=== PATIENT | male | born 1990 | race African-American/Black ===

== ENCOUNTER 2021-10-27 21:55 | Emergency (ER) | payer BC ==
[2021-10-27] MEDS ORDERED: ALBUTEROL 2.5 MG/3 ML NEB SOL ONE (23:38)
[2021-10-27] MEDS ORDERED: predniSONE 20 MG TAB ONE (23:38)
--- NOTE | 2021-10-28 01:44 | EDPHYS ---
Physician Documentation [facility] Name: Sarthak Burns Age: 31 yrs Sex: Male : 1990 Arrival Date: 10/27/2021 Time: 21:59 Bed 15 Private MD: ED Physician Levon Zuniga HPI: 10/27 23:30 This 31 yrs old Black Male presents to ER via Ambulatory with complaints of Asthma cp Exacerbation. 23:30 The patient presents to the emergency department with wheezing, Current therapy: Duo cp Nebs, the patient was reported to have audible wheezing. Onset: The symptoms/episode began/occurred 2 day(s) ago. Associated signs and symptoms: Pertinent negatives: chest pain, fever, headache, palpitations, vomiting. Severity of symptoms: in the emergency department the symptoms are unchanged despite home interventions. Historical: - Allergies: 22:03 No Known Allergies; hb - Home Meds: 22:04 DuoNeb 0.5 mg-3 mg(2.5 mg base)/3 mL Inhl nebu [Active]; Albuterol Inhl [Active]; hb - PMHx: 22:03 Asthma; hb - PSHx: 22:04 None; hb - Immunization history:: Client reports having NOT received the Covid vaccine. - Social history:: Smoking status: Patient denies any tobacco usage or history of. ROS: 23:35 Constitutional: Negative for body aches, chills, fever, poor PO intake. cp 23:35 Eyes: Negative for injury, pain, redness, and discharge. cp 23:35 ENT: Negative for drainage from ear(s), ear pain, sore throat, difficulty swallowing, difficulty handling secretions. 23:35 Cardiovascular: Negative for chest pain, edema, palpitations. 23:35 Respiratory: Positive for shortness of breath, wheezing, Negative for cough. 23:35 Abdomen/GI: Negative for abdominal pain, nausea, vomiting, and diarrhea. 23:35 Neuro: Negative for altered mental status, headache, weakness. 23:35 All other systems are negative. Exam: 23:40 Constitutional: The patient appears in no acute distress, alert, awake, comfortable, cp non-diaphoretic, non-toxic, well developed, well nourished. 23:40 Head/Face: Normocephalic, atraumatic. cp 23:40 Eyes: Periorbital structures: appear normal, Conjunctiva: normal, no exudate, no injection, Sclera: no appreciated abnormality, Lids and lashes: appear normal, bilaterally. 23:40 ENT: External ear(s): are unremarkable, Nose: is normal, Mouth: Lips: moist, Oral mucosa: pink and intact, moist, Posterior pharynx: Airway: no evidence of obstruction, patent, Tonsils: are normal in appearance, swelling, is not appreciated, erythema, is not appreciated. 23:40 Neck: ROM/movement: is normal, is supple, without pain, no range of motions limitations. 23:40 Chest/axilla: Inspection: normal, Palpation: is normal, no crepitus, no tenderness. 23:40 Cardiovascular: Rate: normal, Rhythm: regular, Edema: is not appreciated, JVD: is not appreciated. 23:40 Respiratory: the patient does not display signs of respiratory distress, Respirations: normal, no use of accessory muscles, no retractions, labored breathing, is not present, Breath sounds: decreased breath sounds, are not appreciated, stridor, is not appreciated, wheezing: that is mild, is heard in the left posterior upper lobe and left posterior lower lobe. 23:40 Abdomen/GI: Inspection: abdomen appears normal, Palpation: abdomen is soft and non-tender, in all quadrants. 23:40 Back: pain, is absent, ROM is normal. 23:40 Neuro: Orientation: to person, place \T\ time. Mentation: is normal, Cerebellar function: is grossly normal, Motor: moves all fours, strength is normal, Sensation: is normal. Vital Signs: 22:01 BP 115 / 75; Pulse 88; Resp 18; Temp 97.8; Pulse Ox 99% on R/A; Weight 58.97 kg; Height hb 5 ft. 7 in. (170.18 cm); Pain 0/10; 22:49 BP 127 / 82; Pulse 76; Resp 18; Pulse Ox 100% on R/A; eh3 23:37 BP 118 / 76; Pulse 88; Resp 18; Pulse Ox 100% on R/A; ld1 10/28 02:20 BP 121 / 80; Pulse 84; Resp 17 S; Pulse Ox 100% on R/A; lg3 10/27 22:01 Body Mass Index 20.36 (58.97 kg, 170.18 cm) hb MDM: 10/27 22:59 Patient medically screened. cp 10/28 00:00 Differential diagnosis: acute asthma, reactive airway, anaphylaxis, pneumonia. cp 01:42 Antibiotic administration: Not indicated, the patient does not have an appreciated cp infiltrate. 01:42 Data reviewed: vital signs, nurses notes, radiologic studies, plain films. Test cp interpretation: by ED physician or midlevel provider: plain radiologic studies. Counseling: I had a detailed discussion with the patient and/or guardian regarding: the historical points, exam findings, and any diagnostic results supporting the discharge/admit diagnosis, radiology results, the need for outpatient follow up, a family practitioner, to return to the emergency department if symptoms worsen or persist or if there are any questions or concerns that arise at home. Response to treatment: the patient's symptoms have markedly improved after treatment, and as a result, I will discharge patient. 10/27 23:25 Order name: XRAY Chest (1 view) cp Administered Medications: 10/27 23:25 CANCELLED (Physician Discretion): SOLU-Medrol (methylPREDNISolone sodium succinate) 125 cp mg IM once 23:37 Drug: Albuterol - atroVENT (ipratropium) (3:1) (2.5 mg - 0.5 mg) 3 ml Route: Nebulizer; ld1 10/28 00:01 Follow up: Response: No adverse reaction eh3 10/27 23:37 Drug: predniSONE 60 mg Route: PO; ld1 10/28 00:01 Follow up: Response: No adverse reaction 3 01:50 Drug: Albuterol 2.5 mg Route: Inhalation; lg3 Disposition: 22:06 Co-signature as Attending Physician, Levon Zuniga MD. rn Disposition Summary: 10/28/21 01:42 Discharge Ordered Location: Home cp Problem: an acute exacerbation cp Symptoms: have improved cp Condition: Stable cp Diagnosis - Unspecified asthma with (acute) exacerbation cp Followup: cp - With: Private Physician - When: 2 - 3 days - Reason: Recheck today's complaints Discharge Instructions: - Discharge Summary Sheet cp - Asthma, Adult cp Forms: - Medication Reconciliation Form cp - Thank You Letter cp - Antibiotic Education cp - Prescription Opioid Use cp Prescriptions: - ipratropium-albuterol 0.5 mg-3 mg(2.5 mg base)/3 mL Inhalation solution for nebulization - inhale 3 milliliter by NEBULIZATION route 4 times per day; 1 box; Refills: 0, cp Product Selection Permitted - prednisone 50 mg Oral tablet - take 1 tablet by ORAL route once daily for 5 days; 5 tablet; Refills: 0, cp Product Selection Permitted Signatures: Dispatcher [employer] EDLevon Gonzalez MD MD rn Page, Corey, PA PA cp Geena Delgado RN RN Marian Rinaldi RN RN lg3 Gaby Lei RN RN ld1 Cynthia Silva 3 Corrections: (The following items were deleted from the chart) 10/27 23:25 23:24 SOLU-Medrol (methylPREDNISolone sodium succinate) 125 mg IM once ordered. cp cp
--- NOTE | 2021-10-28 01:44 | ER ---
Nurse's Notes [facility] Name: Sarthak Burns Age: 31 yrs Sex: Male : 1990 Arrival Date: 10/27/2021 Time: 21:59 Bed 15 Private MD: Diagnosis: Unspecified asthma with (acute) exacerbation Presentation: 10/27 22:01 Chief complaint: SOB x 2 days, unrelieved by inhaler and neb x 5 today. Coronavirus hb screen: Client presents with at least one sign or symptom that may indicate coronavirus-19. Standard/surgical mask placed on the client. Ebola Screen: No symptoms or risks identified at this time. Initial Sepsis Screen: Does the patient meet any 2 criteria? No. Patient's initial sepsis screen is negative. Does the patient have a suspected source of infection? No. Patient's initial sepsis screen is negative. Risk Assessment: Do you want to hurt yourself or someone else? Patient reports no desire to harm self or others. Onset of symptoms was October 26, 2021. 22:01 Method Of Arrival: Ambulatory 22:01 Acuity: BLANCHE 3 hb Triage Assessment: 22:49 General: Appears in no apparent distress. comfortable, Behavior is calm, cooperative, eh3 appropriate for age. Pain: Denies pain. Neuro: Level of Consciousness is awake, alert, obeys commands, Oriented to person, place, time, situation. Cardiovascular: Capillary refill < 3 seconds Patient's skin is warm and dry. Respiratory: Airway is patent Respiratory effort is even, labored, Breath sounds with wheezes bilaterally. Historical: - Allergies: 22:03 No Known Allergies; hb - Home Meds: 22:04 DuoNeb 0.5 mg-3 mg(2.5 mg base)/3 mL Inhl nebu [Active]; Albuterol Inhl [Active]; hb - PMHx: 22:03 Asthma; hb - PSHx: 22:04 None; hb - Immunization history:: Client reports having NOT received the Covid vaccine. - Social history:: Smoking status: Patient denies any tobacco usage or history of. Screenin:56 Abuse screen: Denies threats or abuse. Denies injuries from another. Nutritional eh3 screening: No deficits noted. Tuberculosis screening: No symptoms or risk factors identified. Fall Risk None identified. Assessment: 22:56 Reassessment: No changes from previously documented assessment. see triage assessment. 3 10/28 02:20 Reassessment: Patient appears in no apparent distress at this time. No changes from lg3 previously documented assessment. Patient and/or family updated on plan of care and expected duration. Pain level reassessed. Patient is alert, oriented x 3, equal unlabored respirations, skin warm/dry/pink. Patient states feeling better. Patient states symptoms have improved. Vital Signs: 10/27 22:01 BP 115 / 75; Pulse 88; Resp 18; Temp 97.8; Pulse Ox 99% on R/A; Weight 58.97 kg; Height hb 5 ft. 7 in. (170.18 cm); Pain 0/10; 22:49 BP 127 / 82; Pulse 76; Resp 18; Pulse Ox 100% on R/A; eh3 23:37 BP 118 / 76; Pulse 88; Resp 18; Pulse Ox 100% on R/A; ld1 10/28 02:20 BP 121 / 80; Pulse 84; Resp 17 S; Pulse Ox 100% on R/A; lg3 10/27 22:01 Body Mass Index 20.36 (58.97 kg, 170.18 cm) hb ED Course: 10/27 21:59 Patient arrived in ED. bp1 22:03 Triage completed. hb 22:04 Blaze De La Rosa PA is PHCP. cp 22:04 Levon Zuniga MD is Attending Physician. cp 22:04 Arm band placed on. hb 22:56 Patient has correct armband on for positive identification. Bed in low position. Call [facility] light in reach. Side rails up X2. 22:57 Cynthia Silva is Primary Nurse. 3 10/28 00:24 XRAY Chest (1 view) In Process Unspecified. EDMS 02:21 No provider procedures requiring assistance completed. Patient did not have IV access lg3 during this emergency room visit. Administered Medications: 10/27 23:25 CANCELLED (Physician Discretion): SOLU-Medrol (methylPREDNISolone sodium succinate) 125 cp mg IM once 23:37 Drug: Albuterol - atroVENT (ipratropium) (3:1) (2.5 mg - 0.5 mg) 3 ml Route: Nebulizer; [facility] 10/28 00:01 Follow up: Response: No adverse reaction 3 10/27 23:37 Drug: predniSONE 60 mg Route: PO; ld1 10/28 00:01 Follow up: Response: No adverse reaction 3 01:50 Drug: Albuterol 2.5 mg Route: Inhalation; lg3 Medication: 10/27 22:56 VIS not applicable for this client. 3 Outcome: 10/28 01:42 Discharge ordered by . cp 02:21 Discharged to home ambulatory, with family. lg3 02:21 Condition: stable 02:21 Discharge instructions given to patient, Instructed on discharge instructions, follow up and referral plans. medication usage, Demonstrated understanding of instructions, follow-up care, medications, Prescriptions given X 2. 02:22 Patient left the ED. lg3 Signatures: Dispatcher [employer] EDMS Blaze De La Rosa PA PA cp Baxter, Heather, RN RN Marian Rinaldi RN RN lg3 Tiffany Chavez Lauren, RN RN ld1 Cynthia Silva 3
[2021-10-28] MEDS ORDERED: ALBUTEROL 2.5 MG/3 ML NEB SOL ONE (01:51)
[2021-10-28 06:01] VITALS: TEMP 97.8
[2021-10-28 06:03] VITALS: O2SAT 100
[2021-10-28 06:06] VITALS: BP 121/80
--- NOTE | 2021-10-28 13:15 | RAD REPORT ---
EXAM DESCRIPTION: Chest Single View CLINICAL HISTORY: 1 years Male, SOB COMPARISON: None FINDINGS: No focal lung consolidation. No pleural effusion. No pneumothorax. Cardiomediastinal silhouette is within normal limits. No acute osseous abnormality. IMPRESSION: No acute cardiopulmonary disease. Electronically signed by: Akhil Durbin DO 10/28/2021 12:57 AM CDT Due to temporary technical issues with the PACS/Fluency reporting system, reports are being signed by the in house radiologists without review as a courtesy to insure prompt reporting. The interpreting radiologist is fully responsible for the content of the report.
== END 2021-10-28 02:22 | disposition home or self-care (01) ==
LOC: ER 21:55
DX: J45.901 Unspecified asthma with (acute) exacerbation (principal)
CPT/HCPCS: 71045; J7512

== ENCOUNTER 2022-10-01 11:25 | Emergency (ER) | payer BC, OTHER ==
--- NOTE | 2022-10-01 11:42 | EDPHYS ---
Physician Documentation [facility] Name: Sarthak Burns Age: 32 yrs Sex: Male : 1990 Arrival Date: 10/01/2022 Time: 11:25 Bed IW1 Private MD: ED Physician Levon Zuniga HPI: 10/01 11:55 This 32 yrs old Black Male presents to ER via Ambulatory with complaints of Asthma kb Exacerbation, Chest Tightness. 11:55 The patient presents to the emergency department with wheezing, Current therapy: kb albuterol nebs, that began without any particular precipitating event. Onset: The symptoms/episode began/occurred last week. Modifying factors: The symptoms are alleviated by nebulizer treatment, the symptoms are aggravated by nothing. Associated signs and symptoms: The patient has no apparent associated signs or symptoms. Severity of symptoms: At their worst the symptoms were mild in the emergency department the symptoms are unchanged. The patient has not experienced similar symptoms in the past. The patient has not recently seen a physician. Historical: - Allergies: 11:41 No Known Allergies; cm10 - PMHx: 11:41 Asthma; cm10 - PSHx: 11:41 None; cm10 - Immunization history:: Adult Immunizations up to date. - Social history:: Smoking status: Patient denies any tobacco usage or history of. ROS: 11:54 Constitutional: Negative for fever, chills, and weight loss. kb 11:54 Respiratory: Positive for cough. 11:54 All other systems are negative. Exam: 11:54 Constitutional: This is a well developed, well nourished patient who is awake, alert, kb and in no acute distress. Head/Face: Normocephalic, atraumatic. ENT: Moist Mucous membranes Cardiovascular: Regular rate and rhythm with a normal S1 and S2. No gallops, murmurs, or rubs. No pulse deficits. Respiratory: Respirations even and unlabored. No increased work of breathing. Talking in full sentences Abdomen/GI: Soft, non-tender. No distention Skin: Warm, dry with normal turgor. Normal color. MS/ Extremity: Pulses equal, no cyanosis. Neurovascular intact. Full, normal range of motion. Neuro: Awake and alert, GCS 15, oriented to person, place, time, and situation. Moves all extremities. Normal gait. Vital Signs: 11:38 BP 132 / 83; Pulse 74; Resp 16; Temp 98.4(TE); Pulse Ox 100% ; Weight 58.97 kg; Height cm10 5 ft. 7 in. ; Pain 0/10; 11:38 Body Mass Index 20.36 (58.97 kg, 170.18 cm) cm10 11:38 Pain Scale: Adult cm10 MDM: 11:36 Patient medically screened. kb 11:55 Data reviewed: vital signs, nurses notes. kb Administered Medications: 11:49 Drug: predniSONE PO 40 mg Route: PO; cm10 11:49 Follow up: Response: No adverse reaction cm10 Disposition: 17:47 Co-signature as Attending Physician, Levon Zuniga MD I reviewed the patient's care rn provided by the Advanced Practice Provider and agree with the diagnosis and treatment plan. Disposition Summary: 10/01/22 11:41 Discharge Ordered Location: Home kb Condition: Stable kb Diagnosis - Unspecified asthma with (acute) exacerbation kb Followup: kb - With: Emergency Department - When: As needed - Reason: Worsening of condition Followup: kb - With: Private Physician - When: 2 - 3 days - Reason: Recheck today's complaints, Continuance of care, Re-evaluation by your physician Discharge Instructions: - Discharge Summary Sheet kb - Asthma, Adult, [id number] kb Forms: - Medication Reconciliation Form kb - Thank You Letter kb - Antibiotic Education kb - Prescription Opioid Use kb Signatures: Michelle Whitfield FNP-C FNP-Levon Simon MD MD rn Martinez, Clarissa, RN RN 10
--- NOTE | 2022-10-01 11:42 | ER ---
Nurse's Notes [facility] Name: Sarthak Burns Age: 32 yrs Sex: Male : 1990 Arrival Date: 10/01/2022 Time: 11:25 Bed IW1 Private MD: Diagnosis: Unspecified asthma with (acute) exacerbation Presentation: 10/01 11:38 Chief complaint: Patient states: That he was seen in an ED in [place] yesterday for cm10 asthma exacerbation and forgot his prescription for prednisone at home. Pt states that he is here today because "I just want to make sure I don't get sick from not taking my medication." Pt states that he feels better today. Pt in NAD, respirations even and unlabored. Pt able to speak in complete sentences. Coronavirus screen:. Coronavirus screen: Vaccine status: Patient reports being unvaccinated. Ebola Screen: Patient denies travel to an Ebola-affected area in the 21 days before illness onset. No symptoms or risks identified at this time. Initial Sepsis Screen: Does the patient meet any 2 criteria? No. Patient's initial sepsis screen is negative. Does the patient have a suspected source of infection? No. Patient's initial sepsis screen is negative. Risk Assessment: Do you want to hurt yourself or someone else? Patient reports no desire to harm self or others. Onset of symptoms was October 01, 2022. 11:38 Method Of Arrival: Ambulatory cm10 11:38 Acuity: BLANCHE 4 cm10 Triage Assessment: 11:42 General: Appears in no apparent distress. comfortable, Behavior is calm, cooperative. cm10 Pain: Denies pain. Cardiovascular: No deficits noted. Respiratory: No deficits noted. Airway is patent Respiratory effort is even, unlabored, Respiratory pattern is regular, symmetrical, Breath sounds are clear bilaterally. Historical: - Allergies: 11:41 No Known Allergies; cm10 - PMHx: 11:41 Asthma; cm10 - PSHx: 11:41 None; cm10 - Immunization history:: Adult Immunizations up to date. - Social history:: Smoking status: Patient denies any tobacco usage or history of. Screenin:42 [facility] ED Fall Risk Assessment (Adult) History of falling in the last 3 months, cm10 including since admission No falls in past 3 months (0 pts) Confusion or Disorientation No (0 pts) Intoxicated or Sedated No (0 pts) Impaired Gait No (0 pts) Mobility Assist Device Used No (0 pt) Altered Elimination No (0 pt) Score/Fall Risk Level 0 - 2 = Low Risk Oriented to surroundings, Maintained a safe environment. Abuse screen: Denies threats or abuse. Denies injuries from another. Nutritional screening: No deficits noted. Tuberculosis screening: No symptoms or risk factors identified. Assessment: 11:43 Pain: Denies pain. Pain does not radiate. Pain began No pain. cm10 Vital Signs: 11:38 BP 132 / 83; Pulse 74; Resp 16; Temp 98.4(TE); Pulse Ox 100% ; Weight 58.97 kg; Height cm10 5 ft. 7 in. ; Pain 0/10; 11:38 Body Mass Index 20.36 (58.97 kg, 170.18 cm) cm10 11:38 Pain Scale: Adult cm10 ED Course: 11:34 Patient arrived in ED. am2 11:36 Michelle Whitfield FNP-C is [facility]. kb 11:36 Levon Zuniga MD is Attending Physician. kb 11:41 Triage completed. cm10 11:42 Arm band placed on Patient placed in waiting room. cm10 11:43 Patient has correct armband on for positive identification. Cardiac monitoring not cm10 applicable on this patient. 11:43 No provider procedures requiring assistance completed. Patient did not have IV access cm10 during this emergency room visit. Patient maintains SpO2 saturation greater than 95% on room air. Administered Medications: 11:49 Drug: predniSONE PO 40 mg Route: PO; cm10 11:49 Follow up: Response: No adverse reaction cm10 Medication: 11:43 VIS not applicable for this client. cm10 Outcome: 11:41 Discharge ordered by . kb 11:49 Discharged to home ambulatory. cm10 11:49 Condition: good 11:49 Discharge instructions given to patient, Instructed on discharge instructions, follow up and referral plans. 11:49 Patient left the ED. cm10 Signatures: Michelle Whitfield FNP-C FNP-Ckb Moreno, Amanda am2 Maren Patel RN RN cm10
[2022-10-01] MEDS ORDERED: predniSONE 20 MG TAB ONE (11:54)
[2022-10-01 12:05] VITALS: BP 132/83; TEMP 98.4; O2SAT 100
== END 2022-10-01 11:49 | disposition home or self-care (01) ==
LOC: ER 11:25
DX: J45.901 Unspecified asthma with (acute) exacerbation (principal)
CPT/HCPCS: 99284; J7512